=== PATIENT | male | born 1990 | race Caucasian/White ===

== ENCOUNTER 2018-08-07 20:20 | Emergency (ER) | payer SELFPAY ==
[~2018-08-07] VITALS: Ht 175.3 cm; Wt 86.6 kg
[2018-08-07 20:31] VITALS: Ht 175.3 cm; Wt 86.6 kg
[2018-08-07 21:55] VITALS: BP 113/73
== END 2018-08-07 22:08 | disposition home or self-care (01) ==
LOC: ED 20:20
DX: K29.20 Alcoholic gastritis without bleeding (principal)
CPT/HCPCS: J2405